=== PATIENT | male | born 1965 | race Caucasian/White ===

== ENCOUNTER → 2017-02-18 | Outpatient (CLI) | payer BC ==
--- NOTE | 2017-02-18 15:03 | KCIC ---
EXAM: Renal sonogram complete. HISTORY: Renal insufficiency. TECHNIQUE: Sonographic imaging of the kidneys and bladder was performed. COMPARISON: Correlation is made with the report from a prior sonogram in 2010. FINDINGS: The right kidney measures 9.4 cm [id number] and the left kidney measures 10.7 cm [id number]. No solid or cystic renal lesion is seen. There is no hydronephrosis. The bladder is unremarkable. The bladder volume is 97 mL. IMPRESSION: Sonographically unremarkable kidneys. Note is made that the kidneys are decreased in size compared with prior sonogram report. However, the kidneys remain within normal limits in size. Electronically signed by: Valeria Patel MD (02/18/2017 3:00 PM) [id number]
== END | disposition home or self-care (01) ==
LOC: KCIC US 14:29
PROVIDERS: ATTEND Internal Medicine Nephrology
DX: N18.3 Chronic kidney disease, stage 3 (moderate) (principal)
CPT/HCPCS: 76770